=== PATIENT | male | born 1990 | race Caucasian/White ===

== ENCOUNTER 2018-09-14 21:54 | Emergency (ER) | payer SELFPAY ==
[2018-09-14] MEDS ORDERED: Ketorolac Tromethamine 30 MG/ML VIAL ONE (22:49)
[2018-09-14] MEDS ORDERED: Fluconazole 100 MG TAB PO SCH (23:00)
--- NOTE | 2018-09-14 23:21 | RAD ---
FOUR VIEWS LEFT KNEE: 09/14/18 COMPARISON: None. HISTORY: Redness and pain following trauma. FINDINGS: No knee joint effusion, displaced fracture, or evidence of dislocation is seen. IMPRESSION: No acute findings. POS: [facility]
--- NOTE | 2018-09-14 23:58 | ULT ---
LEFT LOWER EXTREMITY VENOUS DOPPLER ULTRASOUND: 09/14/18 COMPARISON: None. HISTORY: Redness, pain, swelling and edema, assess for DVT. TECHNIQUE: Multiplanar nicholson scale sonographic imaging of the venous structures of the left lower extremity obtai niharika with color flow and spectral analysis. FINDINGS: Left common femoral vein, femoral vein, popliteal vein, greater saphenous vein, profunda femoral vein , and posterior tibial vein are patent. There is normal blood flow, augmentation and compression with in the deep venous system on the left. No evidence for DVT. IMPRESSION: No evidence for deep venous thrombosis of the left lower extremity. POS: [facility]
== END 2018-09-15 00:33 | disposition home or self-care (01) ==
LOC: ERS 21:54
DX: L03.116 Cellulitis of left lower limb (principal); L03.032 Cellulitis of left toe; B37.42 Candidal balanitis; M25.562 Pain in left knee; I10 Essential (primary) hypertension; J45.909 Unspecified asthma, uncomplicated; G47.30 Sleep apnea, unspecified; F17.220 Nicotine dependence, chewing tobacco, uncomplicated; Z79.899 Other long term (current) drug therapy
CPT/HCPCS: 96374; J1885

== ENCOUNTER 2020-01-01 22:36 | Emergency (ER) | payer SELFPAY ==
--- NOTE | 2020-01-01 23:45 | CT ---
CT HEAD WITHOUT IV CONTRAST COMPARISON: 01/12/2015 HISTORY: Constant tingling in right foot with intermittent tingling in left foot. Intermittent dizzy spells. TECHNIQUE: Axial CT imaging at 5 mm intervals from vertex through skull base without contrast FINDINGS: There is no evidence of an acute infarction, hemorrhage, mass effect, or midline shift. The ventricul ar system is normal in size, shape, and position. Visualized paranasal sinuses are clear. Osseous structures appear intact.CT of the head is stable when compared to prior exam. IMPRESSION: 1. No acute intracranial abnormality demonstrated.
--- NOTE | 2020-01-04 12:23 | EKG ---
Test Reason : Blood Pressure : / mmHG Vent. Rate : 074 BPM Atrial Rate : 074 BPM P-R Int : 158 ms QRS Dur : 096 ms QT Int : 390 ms P-R-T Axes : 043 043 056 degrees QTc Int : 432 ms Poor data quality, interpretation may be adversely affected Normal sinus rhythm Incomplete right bundle branch block Borderline ECG Confirmed by WINIFRED BUITRAGO ([id number]), editor continuity and script ALEXANDRA DUMAS ([id number]) on 01/04/2020 12:22:54 PM Referred By: Confirmed By:WINIFRED BUITRAGO
== END 2020-01-02 00:07 | disposition home or self-care (01) ==
LOC: ERS 22:36
DX: E11.42 Type 2 diabetes mellitus with diabetic polyneuropathy (principal); I10 Essential (primary) hypertension; J45.909 Unspecified asthma, uncomplicated; G47.30 Sleep apnea, unspecified; F17.220 Nicotine dependence, chewing tobacco, uncomplicated; Z79.84 Long term (current) use of oral hypoglycemic drugs; Z79.899 Other long term (current) drug therapy
CPT/HCPCS: 70450; 93005

== ENCOUNTER 2021-06-19 19:30 | Outpatient (CLI) | payer OTHER, SELFPAY | END 2021-06-19 19:31 | disposition home or self-care (01) | LOC: SLEEPLAB 19:30 | PROVIDERS: ATTEND Nurse Practitioner Family | DX: G47.30 Sleep apnea, unspecified (principal); G47.33 Obstructive sleep apnea (adult) (pediatric); G47.10 Hypersomnia, unspecified; G47.00 Insomnia, unspecified; R06.83 Snoring; I10 Essential (primary) hypertension; E11.9 Type 2 diabetes mellitus without complications | CPT/HCPCS: 95810 ==